=== PATIENT | male | born 1965 | race Caucasian/White ===

== ENCOUNTER 2024-04-30 16:42 | Inpatient (IN) | payer OTHER ==
[~2024-04-30] VITALS: Ht 172.7 cm; Wt 70.3 kg
[2024-04-30 16:59] LABS: BASOPHILS # (AUTO) 0.1 K/UL (0.0-0.2); EOSINOPHILS # (AUTO) 0.1 K/uL (0.0-0.7); EOSINOPHILS % (AUTO) 1.1 % (0.0-7.0); HEMATOCRIT 43.6 % (36.7-47.1); HEMOGLOBIN 14.8 g/dL (12.5-16.3); LYMPHOCYTES % (AUTO) 22.9 % (20.5-51.5); MEAN CORPUSCULAR HEMOGLOBIN 30.2 uug (23.8-33.4); MEAN CORPUSCULAR HGB CONC 34 g/dL (32.5-36.3); MEAN CORPUSCULAR VOLUME 89.1 fL (73.0-96.2); MONOCYTES # (AUTO) 0.7 K/uL (0.1-1.30); MONOCYTES % (AUTO) 7.5 % (0.0-11.0); NEUTROPHILS # (AUTO) 5.9 K/uL (1.8-8.9); NEUTROPHILS % (AUTO) 67.5 % (38.5-71.5); PLATELET COUNT (AUTO) 239 K/uL (152-348); RED BLOOD CELL COUNT(AUTO) 4.89 MIL/uL (4.06-5.63); RED CELL DISTRIBUTION WIDTH 13.1 % (12.1-16.2); WHITE BLOOD COUNT (AUTO) 8.7 K/uL (3.6-10.2)
[2024-04-30 17:06] LABS: DIFFERENTIAL COMMENT 1
[2024-04-30 17:22] LABS: CALCIUM 9.6 mg/dL (8.5-10.1); CARBON DIOXIDE 28 mmol/L (21-32); CHLORIDE 98 mmol/L (98-107); CREATININE 1.9 mg/dL (0.6-1.3); GLUCOSE 180 mg/dL (74-106); NT-PRO BNP 8417 pg/mL (0-125); POTASSIUM 4.4 mmol/L (3.5-5.1); SODIUM SERUM 136 mmol/L (136-145); UREA NITROGEN, BLOOD 28 mg/dL (7-18)
[2024-04-30] MEDS ORDERED: FUROSEMIDE 40 MG/4 ML VIAL ONE (17:40)
[2024-04-30] MEDS ORDERED: LOSA50TA39 MT (17:45)
[2024-04-30] MEDS ORDERED: AMLO-212 MT (17:45)
[2024-04-30] MEDS ORDERED: BUPR1FIL3 (17:45)
[2024-04-30] MEDS: FUROSEMIDE 40 MG/4 ML VIAL IV ONE (17:53)
[2024-04-30] MEDS: levoFLOXacin 750MG/D5W 150 ML IV ONE (17:54)
[2024-04-30 21:33] VITALS: BP 154/114; TEMP 98; O2SAT 100
[2024-04-30] MEDS ORDERED: REMEDY ESSENTIAL ZINC PASTE 113 GM TP PRN (21:45)
[2024-04-30] MEDS ORDERED: MAGNESIUM HYDROXIDE 30 ML LIQUID UDC PO PRN (21:45)
[2024-04-30] MEDS ORDERED: ACETAMINOPHEN 325 MG TABLET PO PRN (21:45)
[2024-04-30] MEDS ORDERED: ONDANSETRON 4 MG/2 ML VIAL IV PRN (21:45)
[2024-05-01] VITALS (7 sets, daily range): BP systolic 144–166; BP diastolic 90–118; TEMP 97.4–98.6; O2SAT 97–98
[2024-05-01] MEDS: hydrALAZINE HCL 20 MG/1 ML VIAL IV PRN (00:44)
[2024-05-01 06:40] LABS: BASOPHILS # (AUTO) 0.1 K/UL (0.0-0.2); BASOPHILS % (AUTO) 0.9 % (0.0-2.0); CALCIUM 9.5 mg/dL (8.5-10.1); CREATININE 1.8 mg/dL (0.6-1.3); EOSINOPHILS # (AUTO) 0.1 K/uL (0.0-0.7); EOSINOPHILS % (AUTO) 1.5 % (0.0-7.0); HEMATOCRIT 42.9 % (36.7-47.1); HEMOGLOBIN 14.9 g/dL (12.5-16.3); LYMPHOCYTES # (AUTO) 1.5 K/uL (0.8-4.8); LYMPHOCYTES % (AUTO) 16.5 % (20.5-51.5); MEAN CORPUSCULAR HEMOGLOBIN 30.5 uug (23.8-33.4); MEAN CORPUSCULAR HGB CONC 35 g/dL (32.5-36.3); MEAN CORPUSCULAR VOLUME 87.8 fL (73.0-96.2); MONOCYTES # (AUTO) 0.7 K/uL (0.1-1.30); MONOCYTES % (AUTO) 7.5 % (0.0-11.0); NEUTROPHILS # (AUTO) 6.5 K/uL (1.8-8.9); NEUTROPHILS % (AUTO) 73.6 % (38.5-71.5); PHOSPHOROUS 3.9 mg/dL (2.5-4.9); PLATELET COUNT (AUTO) 228 K/uL (152-348); POTASSIUM 3.8 mmol/L (3.5-5.1); RED BLOOD CELL COUNT(AUTO) 4.88 MIL/uL (4.06-5.63); WHITE BLOOD COUNT (AUTO) 8.8 K/uL (3.6-10.2)
[2024-05-01 07:02] LABS: DIFFERENTIAL COMMENT 1
[2024-05-01] MEDS: AMLODIPINE 5 MG TABLET PO SCH (08:18)
[2024-05-01] MEDS: FUROSEMIDE 40 MG/4 ML VIAL IV SCH (08:19)
[2024-05-01 11:34] LABS: *AMPHETAMINE, URINE NEGATIVE (NEGATIVE); *BARBITURATE, URINE NEGATIVE (NEGATIVE); *BENZODIAZEPINE, URINE NEGATIVE (NEGATIVE); *CANNABINOID, URINE NEGATIVE (NEGATIVE); *COCCAINE, URINE NEGATIVE (NEGATIVE); *OPIATE, URINE NEGATIVE (NEGATIVE); *PHENCYCLIDINE SCREEN,URINE NEGATIVE (NEGATIVE); FENTANYL, URINE NEGATIVE (NEGATIVE)
[2024-05-01] MEDS: hydrALAZINE HCL 50 MG TABLET PO SCH (15:23)
[2024-05-01] MEDS: ARGININE/GLUTAMINE/CALCIUM BMB 1 EACH POWD.PACK PO SCH (17:21)
[2024-05-01] MEDS: ATORVASTATIN 20 MG TABLET PO SCH (21:41)
[2024-05-02 00:36] LABS: *BILIRUBIN,URIN NEGATIVE (NEGATIVE); *BLOOD, URINE NEGATIVE (NEGATIVE); *CLARITY,URINE CLEAR (CLEAR); *COLOR,URINE YELLOW (YELLOW); *KETONES,URINE NEGATIVE (NEGATIVE); *PROTEIN,URINE NEGATIVE (NEGATIVE); *UROBILINOGEN,URINE 0.2 E.U./dl (NORMAL); LEUKOCYTE ESTERASE ,URINE NEGATIVE (NEGATIVE); NITRITE, URINE NEGATIVE (NEGATIVE); UGLUCOSE NEGATIVE (NEGATIVE)
[2024-05-02 00:50] VITALS: BP 150/103; TEMP 97.7; O2SAT 98
[2024-05-02 01:07] LABS: *CREATININE,URINE < 13.0 mg/dL (30-125); *SODIUM RNDM,URINE 118 mmol/L (40-220); *URINE TOTAL PROTEIN RANDOM 16.6 mg/dL (<150/24HR)
[2024-05-02 05:04] VITALS: BP 138/87; TEMP 97.4; O2SAT 99
[2024-05-02 06:59] LABS: BASOPHILS # (AUTO) 0.1 K/UL (0.0-0.2); BASOPHILS % (AUTO) 0.8 % (0.0-2.0); EOSINOPHILS # (AUTO) 0.1 K/uL (0.0-0.7); HEMOGLOBIN 16.7 g/dL (12.5-16.3); LYMPHOCYTES # (AUTO) 1.9 K/uL (0.8-4.8); LYMPHOCYTES % (AUTO) 18.8 % (20.5-51.5); MEAN CORPUSCULAR HEMOGLOBIN 30.7 uug (23.8-33.4); MEAN CORPUSCULAR HGB CONC 35 g/dL (32.5-36.3); MONOCYTES # (AUTO) 0.8 K/uL (0.1-1.30); MONOCYTES % (AUTO) 7.7 % (0.0-11.0); NEUTROPHILS # (AUTO) 7.2 K/uL (1.8-8.9); NEUTROPHILS % (AUTO) 71.7 % (38.5-71.5); PLATELET COUNT (AUTO) 297 K/uL (152-348); RED BLOOD CELL COUNT(AUTO) 5.45 MIL/uL (4.06-5.63)
[2024-05-02 07:12] LABS: DIFFERENTIAL COMMENT 1
[2024-05-02 07:15] LABS: ALBUMIN 2.7 g/dL (3.4-5.0); BILIRUBIN,TOTAL 0.9 mg/dL (0.2-1.0); CALCIUM 9.6 mg/dL (8.5-10.1); CREATININE 1.8 mg/dL (0.6-1.3); MAGNESIUM 2.1 mg/dL (1.8-2.4); PHOSPHOROUS 4.1 mg/dL (2.5-4.9); POTASSIUM 3.4 mmol/L (3.5-5.1); TOTAL PROTEIN, SERUM 7.6 g/dL (6.4-8.2)
[2024-05-02 07:16] VITALS: BP 141/95; TEMP 98.4; O2SAT 96
[2024-05-02] MEDS: METOPROLOL SUCCINATE XL 50 MG TAB.SR.24H PO SCH (09:17)
[2024-05-02] MEDS: POTASSIUM CHLORIDE 20 MEQ POWDER PACKET PO ONE (09:17)
[2024-05-02 10:42] VITALS: BP 148/107; TEMP 98.2; O2SAT 100
[2024-05-02] MEDS ORDERED: METO-357 PO (10:53)
[2024-05-02] MEDS ORDERED: EMPA10TA PO (10:53)
[2024-05-02] MEDS ORDERED: SACU1TAB PO (10:53)
[2024-05-02] MEDS ORDERED: SPIR25TA PO (10:53)
[2024-05-02] MEDS ORDERED: FURO-152 PO (10:54)
[2024-05-03 08:07] LABS: PTH, INTACT 26 pg/mL (15-65)
== END 2024-05-02 12:15 | disposition home or self-care (01) | DRG 194 ==
LOC: ER 16:42 → TELE3 17:34
PROVIDERS: ADMIT Internal Medicine; ATTEND Internal Medicine
DX: I11.0 Hypertensive heart disease with heart failure (principal); N17.0 Acute kidney failure with tubular necrosis; I42.9 Cardiomyopathy, unspecified; I50.23 Acute on chronic systolic (congestive) heart failure; E78.5 Hyperlipidemia, unspecified; Z79.899 Other long term (current) drug therapy; R73.9 Hyperglycemia, unspecified
CPT/HCPCS: 36415; 71045; 76770; 83605; 83735; 83970; 84100; 84155; 84165; 84300; 84484; 85025; 87040; 93005; 93307; A4606; A4663; G0378; J0360; J1940; J1956